=== PATIENT | male | born 1985 | race American Indian/Alaskan Native ===

== ENCOUNTER 2020-05-24 13:50 | Emergency (ER) | payer SELFPAY ==
[2020-05-24 14:23] VITALS: BP 135/91; PULSE 112
--- NOTE | 2020-05-24 15:01 | EDM.PDOC ---
<Rafael Hinkle Jia - Last Filed: 05/24/20 15:08> ED HPI GENERAL MEDICAL PROBLEM - General Chief Complaint: Respiratory Problem Stated Complaint: COUGHING UP LOTS OF FLEM Time Seen by Provider: 05/24/20 14:54 Source of Information: Reports: Patient History Limitations: Reports: No Limitations - History of Present Illness INITIAL COMMENTS - FREE TEXT/NARRATIVE: 35 y/o m c/o R ear drainage, L foot athletes foot, and productive green cough. Pt has had ear drainage for several months as well as athletes foot for the same duration. [place] and was concerned that he may have become infected with something because he has since developed a productive green cough. Denies fever, chills, drugs, etoh, cp, abd pn, diff voiding, constipation or diarrhea. Onset: Gradual Duration: Day(s): Location: Reports: Generalized - Related Data Allergies Allergy/AdvReac Type Severity Reaction Status Date / Time No Known Allergies Allergy Verified 05/24/20 14:25 Home Meds: Home Meds . [No Known Home Meds] 09/26/14 [History] Past Medical History - Past Health History Medical/Surgical History: Denies Medical/Surgical History HEENT History: Reports: None Cardiovascular History: Reports: None Respiratory History: Reports: None Gastrointestinal History: Reports: PUD Genitourinary History: Reports: None Musculoskeletal History: Reports: None Neurological History: Reports: None Psychiatric History: Reports: None Endocrine/Metabolic History: Reports: None Hematologic History: Reports: None Immunologic History: Reports: None Oncologic (Cancer) History: Reports: None Dermatologic History: Reports: None - Infectious Disease History Infectious Disease History: Reports: None - Past Surgical History Head Surgeries/Procedures: Reports: None Social & Family History - Family History Family Medical History: No Pertinent Family History - Caffeine Use Caffeine Use: Reports: Coffee - Recreational Drug Use Recreational Drug Use: No ED ROS GENERAL - Review of Systems Review Of Systems: Comprehensive ROS is negative, except as noted in HPI. ED EXAM, GENERAL - Physical Exam Exam: See Below Exam Limited By: No Limitations General Appearance: Alert Eye Exam: Bilateral Eye: PERRL Ears: Other (R tympanic membrane ruptured with irritation and growth within the ear canal likely pseudomonas) Nose: Normal Inspection, Normal Mucosa, No Blood Throat/Mouth: Normal Inspection Head: Atraumatic, Normocephalic Neck: Normal Inspection, Supple, Non-Tender, Full Range of Motion Respiratory/Chest: No Respiratory Distress, Lungs Clear, Normal Breath Sounds, No Accessory Muscle Use, Chest Non-Tender Cardiovascular: Normal Peripheral Pulses, Regular Rate, Rhythm, No Edema, No Gallop, No JVD, No Murmur, No Rub GI/Abdominal: Soft, Non-Tender (Male) Exam: Deferred Rectal (Males) Exam: Deferred Extremities: Other (except for tinea pedis on left foot.) Neurological: Alert, Oriented, CN II-XII Intact, Normal Cognition, Normal Gait, Normal Reflexes, No Motor/Sensory Deficits Psychiatric: Normal Affect, Normal Mood Skin Exam: Warm, Dry, Intact, Normal Color, No Rash Course - Re-Assessments/Exams Free Text/Narrative Re-Assessment/Exam: discussed exam findings with pt. Given that pt is afebrile, not hypoxic and has clear lung sounds a chest xray was not performed and pt was ok with not having imaging of his chest. 05/24/20 15:08 Departure - Departure Time of Disposition: 15:12 Disposition: Home, Self-Care 01 Condition: Good Clinical Impression: Otitis externa Qualifiers: Otitis externa type: unspecified type Chronicity: chronic Laterality: right Qualified Code(s): H60.61 - Unspecified chronic otitis externa, right ear Tinea pedis Qualifiers: Laterality: left Qualified Code(s): B35.3 - Tinea pedis - Discharge Information *PRESCRIPTION DRUG MONITORING PROGRAM REVIEWED*: Not Applicable *COPY OF PRESCRIPTION DRUG MONITORING REPORT IN PATIENT AHMET: Not Applicable Instructions: Otitis Externa, [id number], Athlete's Foot, [id number] Forms: ED Department Discharge Additional Instructions: RX: ciprofloxacin RX: Lamisil RX: Cortisporin suspension Follow up with your [facility] facility in 10 days to reevaluate your symptoms. If any new concerns or symptoms develop contact your primary care facility or return to the ER. Sepsis Event Note (ED) - Evaluation Sepsis Screening Result: No Definite Risk <Mars Newton - Last Filed: 05/24/20 15:17> Course - Vital Signs Last Recorded V/S: Last Vital Signs Temp 98.2 F 05/24/20 14:22 Pulse 112 H 05/24/20 14:22 Resp 18 05/24/20 14:22 BP 135/91 H 05/24/20 14:22 Pulse Ox 96 05/24/20 14:22 - Re-Assessments/Exams Free Text/Narrative Re-Assessment/Exam: 05/24/20 15:17 I personally performed or re-performed the physical examination and medical decision making. I have verified all student documentation or findings, including history, physical exam and/or medical decision making. Sepsis Event Note (ED) - Focused Exam Vital Signs: Vital Signs Temp Pulse Resp BP Pulse Ox 05/24/20 14:22 98.2 F 112 H 18 135/91 H 96
== END 2020-05-24 15:26 | disposition home or self-care (01) ==
LOC: DL.ED 13:50
DX: H60.61 Unspecified chronic otitis externa, right ear (principal); B35.3 Tinea pedis; H72.91 Unspecified perforation of tympanic membrane, right ear
CPT/HCPCS: 99283